=== PATIENT | female | born 1980 | race Caucasian/White ===

== ENCOUNTER 2018-08-18 01:44 | Emergency (ER) | payer OTHER, SELFPAY ==
[2018-08-18 01:46] VITALS: BP 139/86; PULSE 78; RESP 16; TEMP 37.1; O2SAT 100; BMI 32.2
--- NOTE | 2018-08-18 02:03 | ED.DCSUM_ITS ---
- ER Visit Summary Date of Service: 08/18/18 Chief Complaint: Dental pain History of Present Illness: The patient is a 37 F with no primary care physician. She reports she goes to [facility]. She had a filling fall out of her right mandibular second molar approximately 2 months ago. States that 3 weeks ago she began having sharp pain. States that that is now 10 out of 10 severity. Is worsened by nothing. However, it is sensitive to cold temperatures. She is was on amoxicillin which she finished 2 days ago. States that she did have improvement from this. However, the pain is now returned. Physical Examination: Vitals: Stable. Afebrile. Mouth: No trismus. No edema of the floor of the mouth. Pain with percussion of right mandibular second molar. There is a cavity in the center of this. No focal abscess. General: A&O x 3. NAD. Cardiovascular exam: Regular rate and rhythm, no murmur, rub or gallop. Respiratory exam: Clear to auscultation bilaterally. No wheezes or stridor. Abdominal exam: Soft, nontender, nondistended, normal bowel sounds. No peritoneal signs. Extremity: No clubbing, cyanosis, or edema. Emergency Department Course and Treatment: An [facility] report was obtained which shows she only had one prescription for opiates in the past year. She was given a dose of naproxen, Dillwyn, and clindamycin. Treatment Plan: Patient will be discharged on naproxen, Dillwyn, clindamycin. Instructed to follow-up the dentist as soon as possible. She was given the name for the [facility] as well as local dental referral sheet. Return to the emergency department for any worsening symptoms. Disposition: To home in improved and stable condition. Impression: 1. Dental pain. This note was generated with [email or web address] dictation software. It may contain incorrect words, spelling, and punctuation that were not noted in review of the chart prior to signing ED Disposition - Plan for ED Patient: Disposition: Home or Assisted Living Instructions: ED Tooth Pain Prescriptions: Hydrocodone Bitart/Apap 5-325 [Dillwyn 5MG-325MG] 1 tablet PO Q4H PRN PRN 2 Days #10 tablet PRN Reason: Pain Naproxen [Naprosyn] 500 mg PO BID #14 tablet Clindamycin HCl [Cleocin] 300 mg PO Q6H #40 capsule Referrals: Malathi Mix [NON-STAFF] - As soon as possible
[2018-08-18] MEDS: HYDROcodone Bitartrate/Apap 5/325 Tablet PO ×2 (02:25→02:31)
[2018-08-18] MEDS: Clindamycin HCl 150 MG Capsule 300 MG PO (02:26)
[2018-08-18] MEDS: Naproxen 250 MG Tablet 500 MG PO (02:27)
== END 2018-08-18 02:37 | disposition home or self-care (01) ==
PROVIDERS: Emergency Provider Emergency Medicine
DX: K08.89 Other specified disorders of teeth and supporting structures (principal); Z72.0 Tobacco use
CPT/HCPCS: 99283

== ENCOUNTER → 2018-11-07 | Outpatient (CLI) | payer OTHER, SELFPAY ==
[2018-11-06 17:34] VITALS: BMI 32.2
[2018-11-07 14:46] LABS: Mucous, Urine 0 SEEN /hpf (<or=2+)
[2018-11-07 14:55] LABS: Color, Urine Yellow (Yellow); Glucose, Dipstick Normal (Normal); Ketone-Dipstick Negative (Negative); Leukocyte Esterase-Dipstick 500 /ul (Negative); Nitrite-Dipstick Positive (Negative); Occult Blood-Urine 25 /ul (Negative); Protein-Dipstick 15 mg/dl (Negative); Specific Gravity, Urine 1.015 (1.002-1.030); Urine Bilirubin Dipstick Negative (Negative); Urine Clarity Cloudy (Clear); Urine Urobilinogen 1 mg/dl (Normal)
[2018-11-07 15:26] LABS: Bacteria 4+ /hpf (None Seen); Calcium Oxalate Crystals Ur 1+ /hpf (<or=2+); Red Blood Cells-Urine 0-5 SEEN /hpf (0-5); White Blood Cells 10-25 SEEN /hpf (0-5)
[2018-11-07 15:27] LABS: Amorphous Sediment 3+; Squamous Epithelial Cells - UA 0-5 SEEN /hpf (5-10)
== END | disposition home or self-care (01) ==
LOC: LABSPEC 14:19
PROVIDERS: Referring Provider Physician Assistant; Visit Provider Physician Assistant
DX: R42 Dizziness and giddiness (principal)
CPT/HCPCS: 81001; 87086; 87088; 87186

== ENCOUNTER → 2019-01-16 | Outpatient (CLI) | payer OTHER, SELFPAY ==
[2019-01-15 15:34] VITALS: BMI 32.2
[2019-01-16 15:06] LABS: Mucous, Urine 0 SEEN /hpf (<or=2+)
[2019-01-16 15:19] LABS: Color, Urine Yellow (Yellow); Glucose, Dipstick Normal (Normal); Ketone-Dipstick Negative (Negative); Leukocyte Esterase-Dipstick Negative /ul (Negative); Nitrite-Dipstick Negative (Negative); Occult Blood-Urine 25 /ul (Negative); Protein-Dipstick Negative (Negative); Specific Gravity, Urine 1.015 (1.002-1.030); Urine Bilirubin Dipstick Negative (Negative); Urine Clarity Cloudy (Clear); Urine Urobilinogen Normal (Normal)
[2019-01-16 15:35] LABS: Bacteria 4+ /hpf (None Seen); Squamous Epithelial Cells - UA 0-5 SEEN /hpf (5-10)
[2019-01-16 15:37] LABS: Red Blood Cells-Urine 0-5 SEEN /hpf (0-5); Transitional Epithelial - Ur 0-5 SEEN /hpf (0-5); White Blood Cells 5-10 SEEN /hpf (0-5)
== END | disposition home or self-care (01) ==
LOC: LABSPEC 14:27
PROVIDERS: Referring Provider Physician Assistant; Visit Provider Physician Assistant
DX: N30.01 Acute cystitis with hematuria (principal)
CPT/HCPCS: 81001; 87077; 87086; 87088; 87186

== ENCOUNTER 2023-06-28 16:40 | Emergency (ER) | payer MEDICAID, SELFPAY ==
[2023-06-28 16:41] VITALS: BP 133/117; PULSE 102; RESP 18; TEMP 35.6
[2023-06-28 16:42] VITALS: BP 133/117; PULSE 102; RESP 18; TEMP 35.6; BMI 45.5
[2023-06-28 16:54] VITALS: BP 143/87
--- NOTE | 2023-06-28 16:56 | CT_ITS ---
STUDY: CT ABDOMEN AND PELVIS WITH CONTRAST REASON FOR EXAM: Female, 42 years old. RUQ pain, H/O liver mass -- IV PO Contrast RADIATION DOSAGE (If Supplied By Facility): CTDIvol = ( 18.74 ) mGy, DLP = ( 1390.01 ) mGycm TECHNIQUE: Transaxial images were obtained from the dome of the diaphragm to the symphysis pubis without oral contrast. Oral and amp; IV Gastrografin and amp; 100mL Isovue-370 was administered. Sagittal and coronal images were reconstructed. Individualized dose optimization techniques were used for this CT. COMPARISON: None. FINDINGS: The visualized lung bases are unremarkable. The visualized portions of the heart are within normal limits. Enlarged nonspecific fatty infiltrated liver without discrete mass or bile duct dilatation. Gallbladder has been removed surgically.. Normal spleen. Normal pancreas. Normal bilateral adrenal glands. Normal right kidney. Normal left kidney. Normal visualized stomach. Nonspecific thickening of the garcia of the gastroduodenal junction which may be consistent with nonspecific duodenitis.. No evidence for small bowel obstruction. Prominent fatty infiltrated ileocecal valve Normal colon. The appendix is visualized and appears normal. Normal abdominal aorta. Normal inferior vena cava. Normal retroperitoneum. Normal urinary bladder. Mild cystic changes of the ovaries bilaterally which may be better assessed with sonography if clinically warranted Normal abdominal wall. Lumbar spine demonstrates degenerative change CT/Abdomen/Pelvis WITH Contrast IMPRESSION: Findings which may be consistent with nonspecific gastroduodenitis Enlarged nonspecific fatty infiltrated liver. No well-defined masses identified however given clinical history MRI recommended for more definitive evaluation. Postsurgical changes status post cholecystectomy . Electronically Signed: Leonidas Gonzalez MD at 19:45 EDT ,
--- NOTE | 2023-06-28 17:00 | EX.ED.DYSGE1 ---
HPI History of Present Illness Chief Complaint: Abd Pain Informant: patient Onset/Context/Timing Onset: Weeks Narrative Narrative: Patient presents with a 1 month history of right upper quadrant abdominal pain wrapping around to the right flank region. 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 She states she had similar pain then. She no longer has a physician but did go to urgent care today and then referred to the emergency room. She denies fever or chills. No vomiting or diarrhea. No urinary symptoms. [facility] Medical History (Updated 06/28/23 @ 20:[address] Regina Sanchez MD) history of child Seasonal allergies Home Medications control PO 11/06/18 [History Last Taken Unknown] ciprofloxacin HCl 500 mg tablet (Cipro) 500 mg PO BID #14 tabs 01/15/19 [Rx Last Taken Unknown] pantoprazole 40 mg tablet,delayed release (Protonix) 40 mg PO DAILY #30 tabs 06/28/23 [Rx Last Taken Unknown] sulfamethoxazole 800 mg-trimethoprim 160 mg tablet (Bactrim DS) 1 tab PO BID #20 tabs 06/28/23 [Rx Last Taken Unknown] Allergy/AdvReac Type Severity Reaction Status Date / Time No Known Allergies Allergy Verified 06/28/23 16:42 Surgical History (Updated 06/28/23 @ 17:[address] Regina Sanchez MD) History of cholecystectomy Social History Smoking Status: Current every day smoker tobacco type: cigarettes alcohol intake: never ROS ROS ED Constitutional Constitutional ED: Denies chills or fever(s) Eyes Eyes: Denies change in vision or discharge from eye(s) ENT ENT ED: Denies discharge from eye(s), rhinorrhea or sore throat Cardiovascular Cardiovascular: Denies chest pain or palpitations Respiratory/Chest Respiratory/Chest: Denies cough or dyspnea Gastrointestinal Gastrointestinal: Reports abdominal pain; Denies diarrhea, nausea or vomiting Genitourinary Genitourinary ED: Denies dysuria or hematuria Musculoskeletal Musculoskeletal: Reports back pain; Denies extremity pain Integumentary Denies Abrasions or rash Neurologic Neurologic: Denies headache(s) or weakness Psychiatric Psychiatric: Denies anxiety or depression Allergic/Immunologic Allergic/Immunologic ED: Denies lip swelling or urticaria EXAM Physical Exam Const Vital Signs: 06/28/23 16:42 06/28/23 16:41 06/28/23 16:54 Temperature 96.0 F L 96.0 F L Temperature Source Temporal Temporal Pulse Rate 102 H 102 H Respiratory Rate 18 18 Blood Pressure 133/117 H 133/117 H 143/87 H Blood Pressure Mean 122 122 105 Pulse Ox Oxygen Delivery Method 06/28/23 17:49 06/28/23 18:52 Temperature Temperature Source Pulse Rate 99 100 Respiratory Rate 16 18 Blood Pressure 151/76 H 145/99 H Blood Pressure Mean 101 114 Pulse Ox 97 98 Oxygen Delivery Method Room Air Room Air Positive well nourished and well developed General Appearance ED: well developed HEENT Reports moist mucous membranes Eyes EOMs intact bilaterally Chest Wall inspection of chest normal and palpation of chest normal Resp normal respiratory effort and clear to auscultation bilaterally Cardio regular rate and regular rhythm GI GI Narrative: Abdomen soft with mild tenderness to the right upper quadrant. No guarding or rebound. Back/Spine Back/Spine Narrative: Mild right-sided CVA tenderness. Extremity normal to inspection Neuro oriented x3 and no sensory deficits noted Motor Exam: strength 5/5 throughout Psych mental status grossly normal Skin no rashes or lesions noted MDM MDM MDM Narrative Medical decision making narrative: IV line established. Patient given dose of morphine and Zofran. Labwork obtained to evaluate for leukocytosis, anemia, and electrolyte derangement. Urinalysis obtained to evaluate for infection/hematuria. CT scan of the abdomen and pelvis with p.o. and IV contrast obtained to evaluate for any liver abnormalities given her history of benign liver tumor. History & Record Review Discussion w/independent historian: Patient Lab Data Attestation: I reviewed the patient's lab results. Labs: Laboratory Results - last 24 hr 06/28/23 06/28/23 17:25 17:39 WBC 9.8 RBC 4.81 Hgb 13.2 Hct 40.9 MCV 85.0 MCH 27.4 MCHC 32.3 RDW Std Deviation 42.6 RDW Coeff of Parth 13.8 Plt Count 362 MPV 10.2 Immature Gran % (Auto) 1.000 H Neut % (Auto) 63.5 Lymph % (Auto) 23.0 [place] % (Auto) 8.6 Eos % (Auto) 3.0 Baso % (Auto) 0.9 Absolute Neuts (auto) 6.2 Absolute Lymphs (auto) 2.26 Nucleated RBC % 0 Sodium 138 Potassium 4.0 Chloride 108 H Carbon Dioxide 26.0 Anion Gap 4 L BUN 11 Creatinine 0.83 Estim Creat Clear Calc 133.31 Est GFR (MDRD) Af Amer 96 Est GFR (MDRD) Non-Af 80 BUN/Creatinine Ratio 13.2 Glucose 112 H Calcium 8.8 Total Bilirubin 0.60 Direct Bilirubin 0.15 AST 52 H ALT 81 H Alkaline Phosphatase 87 Total Protein 7.2 Albumin 3.3 Globulin 3.9 Lipase 39 Serum , Qual NEGATIVE Urine Color Yellow Urine Clarity Clear Urine pH 6.0 Ur Specific [place] 1.020 Urine Protein 15 H Urine Glucose (UA) Normal Urine Ketones Negative Urine Occult Blood 10 H Urine Nitrite Positive H Urine Bilirubin Negative Urine Urobilinogen 1 H Ur Leukocyte Esterase 25 H Urine RBC 0 SEEN Urine WBC 0-5 SEEN Ur Squamous Epith Cells 0-5 SEEN Urine Bacteria 2+ Urine Mucus 0 SEEN Radiography Diagnostic Testing: Clinical Impression(s) from Imaging Studies Abdomen/Pelvis CT 06/28/23 16:56 IMPRESSION: Findings which may be consistent with nonspecific gastroduodenitis Enlarged nonspecific fatty infiltrated liver. No well-defined masses identified however given clinical history MRI recommended for more definitive evaluation. Postsurgical changes status post cholecystectomy . Electronically Signed: Leonidas Gonzalez MD at 19:45 EDT Reading Location ID and State: [facility] / [place] Tel , Service support , Treatment and Re-Evaluation :: CBC was normal white count 9.8 with a hemoglobin of 13.2. Chemistry studies unremarkable. LFTs significant for an AST of 52 and an ALT of 81. Lipase is normal. test negative. Urinalysis does reveal evidence of infection with 2+ bacteria and positive nitrites. Given her right CVA tenderness I will cover her with 10 days of Bactrim for pyelonephritis. CT scan of the abdomen pelvis without contrast reveals findings consistent with nonspecific gastroduodenitis. Nonspecific fatty infiltrated liver. No well-defined masses, however given her history they do recommend follow-up for MRI. Test results discussed with the patient. I will start her on Protonix as well as write her the prescription for Bactrim. I will refer her to Dr. Romero, next on the no doc list to establish primary care. I will also refer her to GI for follow-up. Discharge Plan Triage Chief Complaint: Abd Pain ED Provider: Regina Sanchez Dx/Rx/DC Orders Clinical Impression: Pyelonephritis, Gastroduodenitis Instructions: Duodenitis, ED Pyelonephritis, Female (Adult) Prescriptions: New sulfamethoxazole-trimethoprim [Bactrim DS] 800-160 mg tablet 1 tab PO BID Qty: 20 0RF pantoprazole [Protonix] 40 mg tablet,delayed release (DR/EC) 40 mg PO DAILY Qty: 30 0RF No Action control PO ciprofloxacin HCl [Cipro] 500 mg tablet 500 mg PO BID Qty: 14 0RF Primary Care Provider: Care Physician,No Primary Referrals: Myesha Romero MD [Med Staff - Special Education Para Professional] - As soon as possible FriendVaibhav DO [Med Staff - Active Staff] - As Needed Care Physician,No Primary [Primary Care Provider] - Disposition Disposition: Home, Self Care
[2023-06-28] MEDS: Ondansetron 4 MG/2 ML Vial IV (17:31)
[2023-06-28] MEDS: 0.9% Normal Saline (1000mL) 1,000 ML 150 ML IV (17:31)
[2023-06-28 17:32] LABS: Absolute Lymphocyte Count 2.26 X10^3/uL (0.83-4.51); Absolute Neutrophil Count 6.2 X10^3/uL (2.0-7.7); Basophil# 0.09 X10^3/uL; Basophil% 0.9 % (0-1); Eosinophil# 0.29 X10^3/uL; Hematocrit 40.9 % (37-47); Hemoglobin 13.2 g/dL (12.0-15.0); Lymphocyte # 2.26 X10^3/ul (0.83-4.51); Mean Corp Hgb Conc 32.3 g/dL (32-36); Mean Corpuscular Hgb 27.4 pg (27.0-32.0); Mean Platelet Vol. 10.2 fl (6.2-12.0); Monocyte# 0.85 X10^3/uL; Monocyte% 8.6 % (0-10); NRBC Flagged by Analyzer 0 % (0-5); Neutrophil # 6.24 X10^3/uL (2.7-7.7); Neutrophil % 63.5 % (47-70); Platelet Count 362 K/mm3 (150-450); RBC Distribution Width CV 13.8 % (11.6-14.6); RBC Distribution Width SD 42.6 fl (35.1-43.9); Red Blood Count 4.81 M/mm3 (4.2-5.4); White Blood Count 9.8 K/mm3 (4.4-11.0)
[2023-06-28] MEDS: Morphine 4 MG/ML Syringe IV (17:33)
[2023-06-28 17:48] LABS: Mucous, Urine 0 SEEN /hpf (<or=2+); Red Blood Cells-Urine 0 SEEN /hpf (0-5)
[2023-06-28 17:49] VITALS: BP 151/76; PULSE 99; RESP 16; O2SAT 97
[2023-06-28 17:50] LABS: AST(SGOT) 52 U/L (15-37); Alanine Aminotransfer ALT/SGPT 81 U/L (13-56); Albumin, Serum 3.3 g/dL (3.2-5.0); Alkaline Phosphatase 87 U/L (45-117); Anion Gap 4 (5-15); BUN 11 mg/dL (7-18); BUN/Creat Ratio 13.2 RATIO (10-20); Bilirubin, Direct 0.15 mg/dL (0.00-0.30); Calcium,Total 8.8 mg/dL (8.5-10.1); Chloride 108 mmol/L (98-107); Creatinine, Serum 0.83 mg/dL (0.55-1.02); EST Glomerular Filtration Rate 80 mL/min (>60); Est Glom Filt Rate - Afr Amer 96 mL/min (>60); Estimated Creatinine Clearance 133.31 ml/min; Globulin 3.9 g/dL (2.2-4.2); Glucose 112 mg/dL (74-106); Lipase 39 U/L (13-75); Protein, Total 7.2 g/dL (6.4-8.2); Sodium Level 138 mmol/L (136-145)
[2023-06-28 17:52] LABS: Color, Urine Yellow (Yellow); Glucose, Dipstick Normal (Normal); Ketone-Dipstick Negative (Negative); Leukocyte Esterase-Dipstick 25 /ul (Negative); Nitrite-Dipstick Positive (Negative); Occult Blood-Urine 10 /ul (Negative); Protein-Dipstick 15 mg/dl (Negative); Urine Bilirubin Dipstick Negative (Negative); Urine Clarity Clear (Clear); Urine Urobilinogen 1 mg/dl (Normal)
[2023-06-28 17:59] LABS: Internal QC Validated? YES +Cl - CLEAR BKGD; Pregnancy, Serum, hCG Quali. NEGATIVE Negative
[2023-06-28 18:01] LABS: Bacteria 2+ /hpf (None Seen); Squamous Epithelial Cells - UA 0-5 SEEN /hpf (5-10); White Blood Cells 0-5 SEEN /hpf (0-5)
[2023-06-28 18:52] VITALS: BP 145/99; PULSE 100; RESP 18; O2SAT 98
[2023-06-28] MEDS: Smz/Tmp Ds Tablet 1 TABLET PO (20:12)
[2023-06-28] MEDS: Pantoprazole Sodium 40 MG Tablet PO (20:12)
[2023-06-28 20:14] VITALS: BP 117/61; PULSE 86; RESP 16; TEMP 36.4; O2SAT 96
== END 2023-06-28 20:15 | disposition home or self-care (01) ==
PROVIDERS: Emergency Provider Emergency Medicine; Visit Provider Emergency Medicine
DX: N12 Tubulo-interstitial nephritis, not specified as acute or chronic (principal); K29.90 Gastroduodenitis, unspecified, without bleeding; F17.210 Nicotine dependence, cigarettes, uncomplicated
CPT/HCPCS: 74177; 80048; 80076; 81001; 83690; 84703; 85025; 96361; 96374; 96375; 99284; J7030; Q9967; A4216; J2405

== ENCOUNTER 2023-11-05 22:01 | Emergency (ER) | payer MEDICAID, SELFPAY ==
[2023-11-05 22:02] VITALS: BP 169/96; PULSE 109; RESP 20; TEMP 36.6; O2SAT 98; BMI 46.5
[2023-11-05 22:22] LABS: Mucous, Urine 0 SEEN /hpf (<or=2+); White Blood Cells 0 SEEN /hpf (0-5)
[2023-11-05 22:28] LABS: Color, Urine Yellow (Yellow); Glucose, Dipstick 1000 mg/dl (Normal); Ketone-Dipstick Negative (Negative); Leukocyte Esterase-Dipstick Negative /ul (Negative); Nitrite-Dipstick Negative (Negative); Occult Blood-Urine 10 /ul (Negative); Protein-Dipstick Negative (Negative); Specific Gravity, Urine 1.015 (1.002-1.030); Urine Bilirubin Dipstick Negative (Negative); Urine Clarity Clear (Clear); Urine Urobilinogen Normal (Normal)
[2023-11-05 22:31] LABS: Internal QC Validated? YES +Cl - CLEAR BKGD; Pregnancy, Urine Negative Negative; Record Kit Lot#,Urine Preg 772476
[2023-11-05 22:33] LABS: Squamous Epithelial Cells - UA 0-5 SEEN /hpf (5-10)
[2023-11-05 22:34] LABS: Bacteria 1+ /hpf (None Seen); Yeast-Urine RARE /hpf (None Seen)
[2023-11-05 22:35] LABS: Red Blood Cells-Urine 0-5 SEEN /hpf (0-5)
[2023-11-05] MEDS: 0.9% Normal Saline (1000mL) 1,000 ML 999 ML IV (23:19)
[2023-11-05 23:27] LABS: Absolute Lymphocyte Count 2.08 X10^3/uL (0.83-4.51); Absolute Neutrophil Count 5.3 X10^3/uL (2.0-7.7); Basophil# 0.07 X10^3/uL; Basophil% 0.8 % (0-1); Eosinophil# 0.26 X10^3/uL; Eosinophils% 3.1 % (0-5); Hematocrit 38.8 % (37-47); Hemoglobin 12.5 g/dL (12.0-15.0); Lymphocyte # 2.08 X10^3/ul (0.83-4.51); Lymphocyte % 24.8 % (19-41); Mean Corp Hgb Conc 32.2 g/dL (32-36); Mean Corpuscular Hgb 27.4 pg (27.0-32.0); Mean Corpuscular Volume 85.1 fL (81-99); Mean Platelet Vol. 10.9 fl (6.2-12.0); Monocyte% 7.2 % (0-10); NRBC Flagged by Analyzer 0 % (0-5); Neutrophil # 5.32 X10^3/uL (2.7-7.7); Neutrophil % 63.4 % (47-70); Platelet Count 346 K/mm3 (150-450); RBC Distribution Width CV 13.6 % (11.6-14.6); RBC Distribution Width SD 42.3 fl (35.1-43.9); Red Blood Count 4.56 M/mm3 (4.2-5.4); White Blood Count 8.4 K/mm3 (4.4-11.0)
[2023-11-05 23:50] LABS: AST(SGOT) 162 U/L (15-37); Alanine Aminotransfer ALT/SGPT 179 U/L (13-56); Albumin, Serum 3.3 g/dL (3.2-5.0); Alkaline Phosphatase 155 U/L (45-117); Anion Gap 8 (5-15); BUN 11 mg/dL (7-18); BUN/Creat Ratio 9.6 RATIO (10-20); Bilirubin, Direct 0.16 mg/dL (0.00-0.30); Calcium,Total 9.1 mg/dL (8.5-10.1); Chloride 98 mmol/L (98-107); Creatinine, Serum 1.14 mg/dL (0.55-1.02); EST Glomerular Filtration Rate 55 mL/min (>60); Est Glom Filt Rate - Afr Amer 67 mL/min (>60); Estimated Creatinine Clearance 96.84 ml/min; Globulin 4.1 g/dL (2.2-4.2); Glucose 438 mg/dL (74-106); Lipase 69 U/L (13-75); Magnesium 2.2 mg/dL (1.6-2.6); Potassium 4.3 mmol/L (3.5-5.1); Protein, Total 7.4 g/dL (6.4-8.2); Sodium Level 133 mmol/L (136-145)
[2023-11-05 23:55] VITALS: BP 134/94; PULSE 94; RESP 18; O2SAT 96
[2023-11-06 00:06] LABS: Lactic Acid 2.7 mmol/L (0.4-1.9)
[2023-11-06 00:50] LABS: Bedside Glucose 351 mg/dL (74-106)
--- NOTE | 2023-11-06 00:52 | EDS_ITS ---
HPI History of Present Illness Chief Complaint: Complaint Informant: patient and spouse/S.O. Narrative Narrative: Patient is a 42-year-old female with past medical history of morbid obesity. She states that over the past 3 to 5 days she has felt dehydrated and has been drinking lots of fluids and also she has noted frequent urination. She denies any dysuria or hematuria or urgency associated with her symptoms. However she states she has had remote urinary tract infections in the past and with this comes in for evaluation. Patient denies any concern for or STD [facility] Medical History (Updated 11/06/23 @ 04:[address] Shayne Astudillo DO) Seasonal allergies history of child Home Medications ?Medication ?Instructions ?Recorded ?Last Taken ?Type cephalexin 500 mg capsule 500 mg PO TID 7 days #21 caps 11/06/23 Unknown Rx fluconazole 150 mg tablet 150 mg PO Q3D 3 doses #3 tabs 11/06/23 Unknown Rx metformin 500 mg tablet 500 mg PO BID 30 days #60 tabs 11/06/23 Unknown Rx Allergy/AdvReac Type Severity Reaction Status Date / Time No Known Allergies Allergy Verified 11/05/23 22:01 Surgical History History of cholecystectomy Social History Smoking Status: Current every day smoker tobacco type: cigarettes alcohol intake: never ROS ROS ED Constitutional Constitutional ED: Denies chills or fever(s) ENT ENT ED: Denies sore throat Cardiovascular Cardiovascular: Denies chest pain Respiratory/Chest Respiratory/Chest: Denies cough or dyspnea Gastrointestinal Gastrointestinal: Denies abdominal pain, diarrhea, nausea or vomiting Genitourinary Genitourinary ED: Reports urinary frequency; Denies dysuria Musculoskeletal Musculoskeletal: Denies myalgias Integumentary Denies rash Neurologic Neurologic: Denies headache(s) Hematologic/Lymphatic Hematologic/Lymphatic: Denies easy bleeding or easy bruising EXAM Physical Exam Const Vital Signs: 11/05/23 22:02 11/05/23 23:55 11/06/23 01:00 Temperature 97.9 F Temperature Source Temporal Pulse Rate 109 H 94 94 Respiratory Rate 20 H 18 96 H Blood Pressure 169/96 H 134/94 H 137/79 H Blood Pressure Mean 120 107 98 Pulse Ox 98 96 14 Oxygen Delivery Method Room Air Room Air Room Air 11/06/23 01:05 Temperature 96.9 F L Temperature Source Pulse Rate 90 Respiratory Rate 18 Blood Pressure 137/79 H Blood Pressure Mean 98 Pulse Ox 96 Oxygen Delivery Method Positive well nourished, well developed and obese General Appearance ED: well developed; Negative for pallor Nutritional Appearance: obese HEENT Reports dry mucous membranes HEENT Narrative: Mucous membranes are dry and tacky without tongue or lip swelling oral lesions or airway edema or compromise No secondary findings in the posterior pharynx to suggest infection Mouth ED: Yes dry mucous membranes Mouth: dry mucous membranes Eyes PERRL and EOMs intact bilaterally General Eye ED: Negative for scleral icterus Neck supple Neck Narrative: No nuchal rigidity or meningeal signs Resp normal respiratory effort and clear to auscultation bilaterally Cardio regular rate and regular rhythm Rate: other Other Details: Heart is regular rate and rhythm without murmurs rubs or gallop Radial and carotid pulses are equal and symmetric GI normal to inspection, nondistended, normoactive bowel sounds, non-tender, non- distended and no masses Auscultation: normoactive bowel sounds Palpation: soft Back/Spine no CVA tenderness Extremity normal to inspection Neuro oriented x3, CN's II-XII intact bilaterally and no sensory deficits noted Sensorium / Orientation: alert Motor Exam: strength 5/5 throughout Psych mental status grossly normal Skin no rashes or lesions noted and No skin turgor normal Skin Narrative: Skin turgor is increased General Skin Exam: Negative for jaundice or pallor MDM MDM MDM Narrative Medical decision making narrative: Patient presented to the ER hypertensive but otherwise with stable vitals. She reported polydipsia and polyuria. Patient had concern for UTI but she did not have dysuria or urgency and with her report of polydipsia and polyuria have higher concern for new onset diabetes. There is potential for DKA or HHS as patient does not have a past medical history of diabetes. There is also concern for acute kidney injury or severe electrolyte abnormality or potential atypical UTI/pyelonephritis. Therefore basic labs were obtained. Patient's kidney function is at the upper limit of normal without findings for JENNIFER. Anion gap and bicarb are normal as well going against DKA and her serum osmolality is less than 320 going against HHS. Her liver enzymes are elevated from approximately 4 months ago but her gallbladder has been removed and she does not have any pain in the right upper quadrant and she does not have signs of jaundice which correlate with her bilirubin value being normal. Urine sample show +1 bacteria but there was no white blood cells present and therefore I do not feel this is true infection. However as she is hyperglycemic and spilling a large amount of sugar in her urine she does have a higher likelihood for a secondary infection so she will still be placed on antibiotics. At this time however her blood sug ar has improved with IV fluids and should be placed on metformin secondary to the new diabetes diagnosis. However without signs of DKA or HHS or severe electrolyte abnormality or JENNIFER there is no need for admission and she is otherwise safe for discharge History & Record Review Discussion w/independent historian: Patient and Significant other Lab Data Attestation: I reviewed the patient's lab results. Labs: Laboratory Results - last 24 hr 11/05/23 11/05/23 11/06/23 22:10 23:15 00:31 WBC 8.4 RBC 4.56 Hgb 12.5 Hct 38.8 MCV 85.1 MCH 27.4 MCHC 32.2 RDW Std Deviation 42.3 RDW Coeff of Parth 13.6 Plt Count 346 MPV 10.9 Immature Gran % (Auto) 0.700 Neut % (Auto) 63.4 Lymph % (Auto) 24.8 [place] % (Auto) 7.2 Eos % (Auto) 3.1 Baso % (Auto) 0.8 Absolute Neuts (auto) 5.3 Absolute Lymphs (auto) 2.08 Nucleated RBC % 0 Sodium 133 L Potassium 4.3 Chloride 98 Carbon Dioxide 27.0 Anion Gap 8 BUN 11 Creatinine 1.14 H Estim Creat Clear Calc 96.84 Est GFR (MDRD) Af Amer 67 Est GFR (MDRD) Non-Af 55 L BUN/Creatinine Ratio 9.6 L Glucose 438 H Lactic Acid 2.7 H* Calcium 9.1 Magnesium 2.2 Total Bilirubin 0.60 Direct Bilirubin 0.16 AST 162 H ALT 179 H Alkaline Phosphatase 155 H Total Protein 7.4 Albumin 3.3 Globulin 4.1 Lipase 69 Urine Color Yellow Urine Clarity Clear Urine pH 6.0 Ur Specific [place] 1.015 Urine Protein Negative Urine Glucose (UA) 1000 H Urine Ketones Negative Urine Occult Blood 10 H Urine Nitrite Negative Urine Bilirubin Negative Urine Urobilinogen Normal Ur Leukocyte Esterase Negative Urine RBC 0-5 SEEN Urine WBC 0 SEEN Ur Squamous Epith Cells 0-5 SEEN Urine Bacteria 1+ Urine Mucus 0 SEEN Urine Yeast RARE Urine Test Negative [place]etone Level NEGATIVE POC Glucose 351 H Discharge Plan Triage Chief Complaint: Complaint ED Provider: Shayne Astudillo Dx/Rx/DC Orders Clinical Impression: New onset type 2 diabetes mellitus, Dehydration, Morbid obesity, Hypertension Instructions: Diabetes: Caring for Your Body, Diabetes Carbs Fats Protein Prescriptions: New cephalexin 500 mg capsule 500 mg PO TID 7 Days Qty: 21 0RF metformin 500 mg tablet 500 mg PO BID 30 Days Qty: 60 0RF fluconazole 150 mg tablet 150 mg PO Q3D Qty: 3 0RF Primary Care Provider: Care Physician,No Primary Referrals: Diego Rm MD [Med Staff - Active Staff] - Care Physician,No Primary [Primary Care Provider] - Activity Restrictions/Additional Instructions: Please follow-up with Dr. Rm or your family doctor for further testing such as a hemoglobin A1c and fasting blood sugar to confirm diabetes and to discuss further treatment options. Return to the ER should you have any further concerns Print Language: Telugu Disposition Disposition: Home, Self Care Discharge Date/Time: 11/06/23 01:10
[2023-11-06 01:00] VITALS: BP 137/79; PULSE 94; RESP 96; O2SAT 14
[2023-11-06 01:05] VITALS: BP 137/79; PULSE 90; RESP 18; TEMP 36.1; O2SAT 96
[2023-11-06] MEDS: Cephalexin 250 MG Capsule 500 MG PO (01:06)
[2023-11-06] MEDS: Insulin Lispro 100 UNIT/ML INSULN.PEN 10 UNIT SC (01:06)
[2023-11-06 03:24] LABS: Reflex Lactate? Y
== END 2023-11-06 01:10 | disposition home or self-care (01) ==
PROVIDERS: Emergency Provider Emergency Medicine; Visit Provider Emergency Medicine
DX: E11.65 Type 2 diabetes mellitus with hyperglycemia (principal); E66.01 Morbid (severe) obesity due to excess calories; Z90.49 Acquired absence of other specified parts of digestive tract; I10 Essential (primary) hypertension; E86.0 Dehydration; Z79.84 Long term (current) use of oral hypoglycemic drugs; F17.210 Nicotine dependence, cigarettes, uncomplicated
CPT/HCPCS: 80048; 80076; 81001; 81025; 82009; 82962; 83605; 83690; 83735; 85025; 96360; 99283; J7030; A4216

== ENCOUNTER → 2023-11-15 | Outpatient (CLI) | payer MEDICAID, SELFPAY ==
[2023-11-15 12:33] LABS: Microalbumin,Random Urine 81.5 mg/L (NO RANGE EST.)
[2023-11-15 12:51] LABS: Anion Gap 8 (5-15); BUN 9 mg/dL (7-18); BUN/Creat Ratio 12.8 RATIO (10-20); Chloride 105 mmol/L (98-107); Cholesterol 192 mg/dL (200); EST Glomerular Filtration Rate 97 mL/min (>60); Est Glom Filt Rate - Afr Amer 117 mL/min (>60); Glucose 197 mg/dL (74-106); High Density Lipoprotein 34 mg/dL; Potassium 3.8 mmol/L (3.5-5.1); Sodium Level 137 mmol/L (136-145); Triglycerides 306 mg/dL; Very Low Density Lipoprotein 61 mg/dL (5-40)
[2023-11-15 14:18] LABS: Hemoglobin A1c 8.8 % (3.8-5.6)
== END | disposition home or self-care (01) ==
LOC: MTLAB 10:37
PROVIDERS: PCP Family Medicine; Referring Provider Family Medicine; Visit Provider Family Medicine
DX: E11.9 Type 2 diabetes mellitus without complications (principal)
CPT/HCPCS: 36415; 80048; 80061; 82043; 83036; 84443

== ENCOUNTER 2024-07-19 20:50 | Emergency (ER) | payer MEDICAID, SELFPAY ==
[2024-07-19 20:50] VITALS: BP 154/104; PULSE 103; RESP 18; TEMP 36.9; O2SAT 98
--- NOTE | 2024-07-19 21:16 | ED.VIS.DENTA ---
HPI History of Present Illness Chief Complaint: Dental Informant: patient and spouse/S.O. Narrative Narrative: 43-year-old female presenting to the emergency room with facial swelling. Patient states that she noticed some swelling today. She notes pain in the right upper teeth. She states she has a tooth that is normally given her problems in the past but has decay. She does not have a dentist. No reported fevers. PFSH PFSH Medical History Seasonal allergies history of child Home Medications ?Medication ?Instructions ?Recorded ?Last Taken ?Type fluconazole 150 mg tablet 150 mg PO Q3D 3 doses #3 tabs 11/06/23 Unknown Rx metformin 500 mg tablet 500 mg PO BID 30 days #60 tabs 11/06/23 Unknown Rx prednisone 10 mg tablet 10 mg PO DAILY #18 tabs 04/14/24 Unknown Rx valacyclovir 1 gram tablet 1,000 mg PO TID #21 tabs 04/14/24 Unknown Rx hydrocodone-acetaminophen 5-325mg 1 tab PO Q6H PRN PRN Pain 3 days 07/19/24 Unknown Rx 5mg-325mg #12 TABLETS ibuprofen 600 mg tablet 600 mg PO Q6H PRN PRN pain #20 07/19/24 Unknown Rx TABLETS penicillin V potassium 500 mg 500 mg PO 4X/DAY #40 tabs 07/19/24 Unknown Rx tablet Allergy/AdvReac Type Severity Reaction Status Date / Time No Known Allergies Allergy Verified 07/19/24 20:50 Surgical History History of cholecystectomy Social History Smoking Status: Current every day smoker tobacco type: cigarettes alcohol intake: never ROS ROS ED Constitutional Constitutional ED: Denies chills or weight loss Eyes Eyes: Denies change in vision or diplopia ENT ENT ED: Reports other Details: See history of present illness ; Denies ear pain, rhinorrhea or sore throat Cardiovascular Cardiovascular: Denies chest pain, orthopnea, palpitations or racing heartbeat Respiratory/Chest Respiratory/Chest: Denies cough, dyspnea or orthopnea Gastrointestinal Gastrointestinal: Denies abdominal pain, diarrhea, nausea or vomiting Genitourinary Genitourinary ED: Denies dysuria, hematuria or urinary frequency Musculoskeletal Musculoskeletal: Denies arthralgias or myalgias Integumentary Denies abscess or rash Neurologic Neurologic: Denies headache(s) or weakness Psychiatric Psychiatric: Denies anxiety, depression, suicidal ideation or suicidal thoughts Endocrine Endocrinology: Denies polydipsia, polyphagia or polyuria Allergic/Immunologic Allergic/Immunologic ED: Denies mouth swelling, tongue swelling or urticaria EXAM Physical Exam Const Vital Signs: 07/19/24 20:50 Temperature 98.5 F Temperature Source Oral Pulse Rate 103 H Respiratory Rate 18 Blood Pressure 154/104 H Blood Pressure Mean 120 Pulse Ox 98 Oxygen Delivery Method Room Air Positive well nourished and well developed General Appearance ED: well developed and NAD HEENT Reports normocephalic, head/scalp atraumatic and moist mucous membranes HEENT Narrative: There is some mild facial swelling on the right compared to the left. No there is no overlying erythema. Oral exam reveals a first molar or premolar that is decayed down to the gumline. There is a obvious lateral gumline abscess that is fluctuant. There is no trismus. No swelling on the roof of the mouth. Floor the mouth is soft. No evidence of gingivitis. Eyes PERRL and EOMs intact bilaterally Neck no lymphadenopathy, supple and no JVD Resp normal respiratory effort and clear to auscultation bilaterally Cardio regular rate, regular rhythm and no murmurs GI normal to inspection, nondistended, normoactive bowel sounds and non-tender Palpation: soft Back/Spine no CVA tenderness and normal ROM Extremity normal to inspection General Extremety ED: Negative for edema General Extremity: Negative for edema Neuro oriented x3 and CN's II-XII intact bilaterally Sensorium / Orientation: alert Motor Exam: strength 5/5 throughout Psych mental status grossly normal Mood & Affect: Negative for depressed or tearful Skin no rashes or lesions noted and no wounds MDM MDM MDM Narrative Medical decision making narrative: Differential diagnosis includes but not limited to dental abscess gingivitis Paco's angina dental cavity facial cellulitis I explained to the patient that she has a dental abscess and because of the abscess visualized on the gumline would be best served with oral antibiotics and incision and drainage. Using 1% Marcaine I injected the dental area and made a slight incision with the bevel of the needle resulting in the expression of a large amount of pus. Patient to continue to massage the area and rinse the mouth and spit. Patient will be given a dose of hydrocodone penicillin and ibuprofen here in the emergency department. She will be prescribed the same for home. I recommend that she see dentistry as soon as possible. History & Record Review Discussion w/independent historian: Patient and Significant other Additional record(s) reviewed:: Prior ED visit Discharge Plan Triage Chief Complaint: Dental ED Provider: Sesar Scott Dx/Rx/DC Orders Clinical Impression: Abscess, dental Instructions: ED Dental Abscess Prescriptions: New ibuprofen 600 mg tablet 600 mg PO Q6H PRN PRN (Reason: pain) Qty: 20 0RF hydrocodone-acetaminophen 5-325 mg tablet 1 tab PO Q6H PRN PRN (Reason: Pain) 3 Days Qty: 12 0RF penicillin V potassium 500 mg tablet 500 mg PO 4X/DAY Qty: 40 0RF No Action valacyclovir 1 gram tablet 1,000 mg PO TID Qty: 21 0RF prednisone 10 mg tablet 10 mg PO DAILY Qty: 18 0RF Rx Instructions: 3 tablets daily x3 days, then 2 tablets daily x3 days, then 1 tablet daily x3 days metformin 500 mg tablet 500 mg PO BID 30 Days Qty: 60 0RF fluconazole 150 mg tablet 150 mg PO Q3D Qty: 3 0RF Primary Care Provider: Diego Rm Referrals: Diego Rm MD [Primary Care Provider] - Activity Restrictions/Additional Instructions: You should see dentistry soon as possible. Most likely you will have worsening swelling on the right side of your face over the next couple days. Please monitor for fever. Please return if you have worsening or concerns Print Language: [place] Disposition Disposition: Home, Self Care Discharge Date/Time: 07/19/24 21:46
[2024-07-19] MEDS: Ibuprofen 400 MG Tablet 800 MG PO (21:40)
[2024-07-19] MEDS: Penicillin Vk 250 MG Tablet 500 MG PO (21:40)
[2024-07-19] MEDS: HYDROcodone Bitartrate/Apap 5/325 Tablet PO (21:40)
== END 2024-07-19 21:46 | disposition home or self-care (01) ==
PROVIDERS: Emergency Provider Emergency Medicine; PCP Family Medicine; Visit Provider Emergency Medicine
DX: K04.7 Periapical abscess without sinus (principal); F17.210 Nicotine dependence, cigarettes, uncomplicated
CPT/HCPCS: 41800; 64400; 99283